=== PATIENT | female | born 1975 | race Caucasian/White ===

== ENCOUNTER 2018-09-02 15:55 | Emergency (ER) | payer OTHER ==
[~2018-09-02] VITALS: Ht 172.7 cm; Wt 90.7 kg
[2018-09-02 15:55] VITALS: BP_SYST 156
[2018-09-02] MEDS ORDERED: KETOROLAC TROMETHAMINE 60 MG/2 ML VIAL IM ONE (16:30)
[2018-09-02 16:36] LABS: CALCIUM 8.9 mg/dL (8.4-11.0); CREATININE 0.82 mg/dL (0.55-1.30); POTASSIUM 3.8 mmol/L (3.5-5.1)
[2018-09-02 16:39] LABS: BASOPHILS # (AUTO) 0.1 K/uL (0.0-0.2); BASOPHILS % (AUTO) 1.4 % (0.0-2.0); EOSINOPHILS # (AUTO) 0.1 K/uL (0.0-0.4); HEMATOCRIT 42.7 % (36-48); HEMOGLOBIN 14.2 g/dL (12.0-16.0); LYMPHOCYTES # (AUTO) 2.2 K/uL (1.0-5.5); LYMPHOCYTES % (AUTO) 34.9 % (20.5-51.5); MEAN CORPUSCULAR HEMOGLOBIN 32 pg (27-31); MEAN CORPUSCULAR HGB CONC 33 % (32-36); MEAN CORPUSCULAR VOLUME 95 fL (79.0-98.0); MONOCYTES # (AUTO) 0.4 K/uL (0.0-1.0); MONOCYTES % (AUTO) 6.3 % (1.7-9.3); NEUTROPHILS # (AUTO) 3.5 K/uL (1.8-7.7); NEUTROPHILS % (AUTO) 56.4 % (40.0-70.0); PLATELET COUNT (AUTO) 300 K/uL (130-430); RED BLOOD CELL COUNT(AUTO) 4.48 MIL/uL (4.2-6.2); RED CELL DISTRIBUTION WIDTH 12.4 % (9.0-15.0); WHITE BLOOD COUNT (AUTO) 6.3 K/uL (4.8-10.8)
[2018-09-02 16:41] LABS: ALBUMIN 3.7 g/dL (3.4-4.8); TOTAL BILIRUBIN 0.4 mg/dL (0.0-1.0)
[2018-09-02 17:40] VITALS: BP_SYST 125
== END 2018-09-02 17:45 | disposition home or self-care (01) ==
LOC: SED 15:55
DX: R07.89 Other chest pain (principal); R03.0 Elevated blood-pressure reading, without diagnosis of hypertension; Z88.1 Allergy status to other antibiotic agents; Z88.2 Allergy status to sulfonamides; Z91.041 Radiographic dye allergy status; Z90.49 Acquired absence of other specified parts of digestive tract; Z90.710 Acquired absence of both cervix and uterus; Z86.718 Personal history of other venous thrombosis and embolism
CPT/HCPCS: 36415; 71045; 80053; 82550; 83880; 84484; 85025; 85379; 93005; 96372; 99285; J1885

== ENCOUNTER 2018-11-13 14:54 | Emergency (ER) | payer OTHER ==
[~2018-11-13] VITALS: Ht 172.7 cm; Wt 90.7 kg
[~2018-11-13 14:54] MED LIST: RIVA15TA PO
[2018-11-13 14:59] VITALS: BP_SYST 148
--- NOTE | 2018-11-13 15:10 | NUR ---
Patient to ER bed 2 to gown for evaluation. Side rails up. Report given to José Miguel RHODES.
[2018-11-13] MEDS ORDERED: NACL 0.9% 1,000 ML IV ONE (15:20)
--- NOTE | 2018-11-13 15:20 | NUR ---
Patient to ER via triage for evaluation of left sided "burning type" CP x 2 days, patient also reports nausea, but no vomiting. EKG was done while patient was in triage-no acute changes. Patient is awake, alert and oriented in no acute distress, HR elevated but vital signs otherwise stable, respirations even and unlabored, skin warm and dry to touch. Patient on cardiac montior which shows sr without ectopy, patient also on BP monitor and pulse oximeter. Awaiting evaluation by ER MD, will continue to observe and assess.
[2018-11-13] MEDS ORDERED: CLOPIDOGREL BISULFATE 75 MG TABLET PO ONE (15:30)
[2018-11-13] MEDS ORDERED: ASPIRIN 81 MG TAB.CHEW PO ONE (15:30)
[2018-11-13] MEDS ORDERED: ONDANSETRON HCL 4 MG/2 ML VIAL IVP ONE (15:30)
--- NOTE | 2018-11-13 15:30 | NUR ---
ER at bedside examining patient.
[2018-11-13] MEDS: NITROGLYCERIN 0.4 MG TAB.SUBL SL ONE ×2 (15:51→15:54)
--- NOTE | 2018-11-13 16:00 | NUR ---
avionics systems technician at bedside for venous doppler of lower extremities. Awaiting lab results and dispo.
[2018-11-13 16:44] LABS: INR 0.9 (0.8-1.2); PROTHROMBIN TIME 9.3 SECS (9.5-12.5)
[2018-11-13 16:49] LABS: CALCIUM 9.3 mg/dL (8.4-11.0); CREATININE 0.97 mg/dL (0.55-1.30); HEMATOCRIT 34.3 % (36-48); HEMOGLOBIN 11.5 g/dL (12.0-16.0); MEAN CORPUSCULAR HEMOGLOBIN 31 pg (27-31); MEAN CORPUSCULAR HGB CONC 34 % (32-36); MEAN CORPUSCULAR VOLUME 91 fL (79.0-98.0); PLATELET COUNT (AUTO) 251 K/uL (130-430); POTASSIUM 4.3 mmol/L (3.5-5.1); RED BLOOD CELL COUNT(AUTO) 3.77 MIL/uL (4.2-6.2); RED CELL DISTRIBUTION WIDTH 12.9 % (9.0-15.0); WHITE BLOOD COUNT (AUTO) 5.5 K/uL (4.8-10.8)
[2018-11-13 16:50] LABS: ALBUMIN 3.6 g/dL (3.4-4.8); BASOPHILS % (AUTO) 0.8 % (0.0-2.0); EOSINOPHILS # (AUTO) 0.1 K/uL (0.0-0.4); EOSINOPHILS % (AUTO) 2.5 % (0.0-4.0); LYMPHOCYTES # (AUTO) 1.1 K/uL (1.0-5.5); LYMPHOCYTES % (AUTO) 20.6 % (20.5-51.5); MONOCYTES # (AUTO) 0.5 K/uL (0.0-1.0); NEUTROPHILS # (AUTO) 3.8 K/uL (1.8-7.7); NEUTROPHILS % (AUTO) 67.1 % (40.0-70.0); TOTAL BILIRUBIN 0.3 mg/dL (0.0-1.0)
--- NOTE | 2018-11-13 17:00 | NUR ---
Patient resting quietly in no acute distress, vital signs stable, respirations even and unlabored, skin warm and dry to touch. Patient remains on salvage engineer which shows sinus rhythm without ectopy. Family remains at bedside. Awaiting dispo.
[2018-11-13 17:12] LABS: CLARITY/URINE CLEAR (CLEAR); COLOR,URINE YELLOW (YELLOW)
[2018-11-13 17:13] LABS: BILIRUBIN,URINE NEGATIVE (NEGATIVE); BLOOD, URINE NEGATIVE (NEGATIVE); GLUCOSE,URINE NEGATIVE (NEGATIVE); KETONES,URINE NEGATIVE (NEGATIVE); LEUKOCYTE ESTERASE ,URINE NEGATIVE (NEGATIVE); NITRITE, URINE NEGATIVE (NEGATIVE); PROTEIN URINE NEGATIVE (NEGATIVE); UROBILINOGEN,URINE 0.2 (0.2-1.0)
--- NOTE | 2018-11-13 17:50 | NUR ---
Patient requesting something for pain, Dr Cruz notified of patient's request.
[2018-11-13] MEDS ORDERED: MORPHINE 4 MG/ML INJ. SYRINGE IVP ONE (18:00)
--- NOTE | 2018-11-13 18:30 | NUR ---
Patient given written and verbal discharge instructions and verbalizes understanding. ER MD discussed with patient the results and treatment provided. Patient in stable condition. ID arm band removed. IV catheter removed intact and dressing applied, no active bleeding. Rx of Robitussin,Tylenol and Zithromax given. Patient educated on pain management and to follow up with PMD. Pain Scale 1/10 tolerable for patient. Opportunity for questions provided and answered. Medication side effect fact sheet provided.
[2018-11-13 18:35] VITALS: BP_SYST 124
== END 2018-11-13 18:35 | disposition home or self-care (01) ==
LOC: SED 14:54
DX: J20.9 Acute bronchitis, unspecified (principal); R07.89 Other chest pain; R03.0 Elevated blood-pressure reading, without diagnosis of hypertension; Z90.710 Acquired absence of both cervix and uterus; Z86.718 Personal history of other venous thrombosis and embolism; Z88.1 Allergy status to other antibiotic agents; Z88.2 Allergy status to sulfonamides; Z91.041 Radiographic dye allergy status
CPT/HCPCS: 36415; 80053; 71045; 81003; 82150; 82550; 83690; 83880; 84484; 85025; 85379; 85610; 85730; 93005; 93970; 96361; 96374; 96375; 99284; J2270; J2405; J7030

== ENCOUNTER 2022-02-26 15:12 | Emergency (ER) | payer OTHER ==
[~2022-02-26] VITALS: Ht 172.7 cm; Wt 90.7 kg
[2022-02-26 15:21] VITALS: BP_SYST 138
--- NOTE | 2022-02-26 15:25 | NUR ---
Patient to ER bed 6 to gown for evaluation. Side rails up. Report given to licensed land surveyor Rhonda.
--- NOTE | 2022-02-26 15:29 | NUR ---
Patient c/o left knee pain states she had a biopsy done 2 days ago on same knee 8/10 pain. c/o LUQ pain x 1 month, dark tarry stools. Hx GI bleeds. Placed onto monitor, vitals stable, patient in no acute distress and or discomfort.
[2022-02-26] MEDS ORDERED: PANTOPRAZOLE SODIUM 40 MG TAB PO ONE ×2 (16:00→16:15)
[2022-02-26] MEDS ORDERED: HYDROcodone/ACETAMIN 5-325 MG TAB (NORCO/ VICODIN) PO ONE (16:15)
--- NOTE | 2022-02-26 16:18 | NUR ---
Welding Inspector at bedside
[2022-02-26 17:27] LABS: BASOPHILS % (AUTO) 0.7 % (0.0-2.0); EOSINOPHILS # (AUTO) 0.1 K/uL (0.0-0.4); EOSINOPHILS % (AUTO) 1.8 % (0.0-4.0); HEMATOCRIT 38.5 % (36-48); HEMOGLOBIN 13.2 g/dL (12.0-16.0); LYMPHOCYTES % (AUTO) 37.6 % (20.5-51.5); MEAN CORPUSCULAR HEMOGLOBIN 31 pg (27-31); MEAN CORPUSCULAR HGB CONC 34 % (32-36); MEAN CORPUSCULAR VOLUME 91 fL (79.0-98.0); MONOCYTES # (AUTO) 0.3 K/uL (0.0-1.0); MONOCYTES % (AUTO) 6.3 % (1.7-9.3); NEUTROPHILS # (AUTO) 2.8 K/uL (1.8-7.7); NEUTROPHILS % (AUTO) 53.6 % (40.0-70.0); PLATELET COUNT (AUTO) 247 K/uL (130-430); RED BLOOD CELL COUNT(AUTO) 4.26 MIL/uL (4.2-6.2); RED CELL DISTRIBUTION WIDTH 13.4 % (9.0-15.0); WHITE BLOOD COUNT (AUTO) 5.3 K/uL (4.8-10.8)
[2022-02-26 17:35] LABS: INR 0.9 (0.8-1.2); PROTHROMBIN TIME 9.9 SECS (9.5-12.5)
--- NOTE | 2022-02-26 19:30 | NUR ---
Patient resting in bed. at bedside. Will continue to monitor.
[2022-02-26] MEDS ORDERED: cloNIDine HCL 0.1 MG TABLET PO ONE (20:00)
--- NOTE | 2022-02-26 20:00 | NUR ---
ER MD AYALAEK AT BEDSIDE TALKING TO PATIENT.
[2022-02-26] MEDS ORDERED: LISI10TA29 PO (20:06)
[2022-02-26] MEDS ORDERED: LISINOPRIL 10 MG TABLET (PRINIVIL) PO ONE (20:15)
[2022-02-26 20:25] VITALS: BP_SYST 148
--- NOTE | 2022-02-26 20:25 | NUR ---
Patient given written and verbal discharge instructions and verbalizes understanding. ER MD WHIPPLE discussed with patient the results and treatment provided. Patient in stable condition. ID arm band removed. Rx of LISINOPRIL given. Patient educated on pain management and to follow up with PMD. Pain Scale 0/10. Opportunity for questions provided and answered. Medication side effect fact sheet provided.
[2022-02-27] MEDS ORDERED: APIX5TAB PO (11:12)
[2022-02-27] MEDS ORDERED: DULO60CA42 PO (11:12)
== END 2022-02-26 20:25 | disposition home or self-care (01) ==
LOC: SED 15:12
DX: R60.0 Localized edema (principal); I10 Essential (primary) hypertension; Z88.1 Allergy status to other antibiotic agents; Z88.2 Allergy status to sulfonamides; Z88.8 Allergy status to other drugs, medicaments and biological substances; Z79.899 Other long term (current) drug therapy
CPT/HCPCS: 36415; 85025; 85379; 85610-TC; 93971; 99284

== ENCOUNTER 2022-02-27 10:00 | Inpatient (IN) | payer OTHER ==
[~2022-02-27] VITALS: Ht 167.6 cm; Wt 90.7 kg
[~2022-02-27 10:00] MED LIST changes: +LISI10TA29 PO
[2022-02-27 10:04] VITALS: BP_SYST 164
--- NOTE | 2022-02-27 10:04 | NUR ---
Patient to ER bed 6 for evaluation. Side rails up. Report given to Janice RHODES.
[2022-02-27] MEDS ORDERED: MORPHINE 4 MG INJ. 4 MG/ML VIAL IVP ONE ×2 (10:10→11:30)
[2022-02-27] MEDS ORDERED: NITROGLYCERIN 1 INCH (GM) OINT. TP ONE (10:10)
--- NOTE | 2022-02-27 10:10 | NUR ---
Dr Velazquez to bedside to examine patient
--- NOTE | 2022-02-27 10:10 | NUR ---
EKG performed at BS by RP. Physician given copy of EKG for review.
[2022-02-27] MEDS ORDERED: ENOXAPARIN SODIUM 80 MG/0.8 ML SYRINGE SUBCUT ONE (10:15)
--- NOTE | 2022-02-27 10:20 | NUR ---
# 20 gauge angiocath placed to left forearm. Use of asceptic technique. Opsite placed over site. Blood return noted. Blood for lab drawn from site. Flushed with 10 cc of normal saline. No evidence of infiltration noted. Patient tolerated well.
[2022-02-27 10:33] LABS: BASOPHILS % (AUTO) 0.7 % (0.0-2.0); EOSINOPHILS # (AUTO) 0.1 K/uL (0.0-0.4); EOSINOPHILS % (AUTO) 1.4 % (0.0-4.0); HEMATOCRIT 41.8 % (36-48); HEMOGLOBIN 14.4 g/dL (12.0-16.0); LYMPHOCYTES # (AUTO) 1.7 K/uL (1.0-5.5); LYMPHOCYTES % (AUTO) 28.5 % (20.5-51.5); MEAN CORPUSCULAR HEMOGLOBIN 31 pg (27-31); MEAN CORPUSCULAR HGB CONC 35 % (32-36); MEAN CORPUSCULAR VOLUME 91 fL (79.0-98.0); MONOCYTES # (AUTO) 0.4 K/uL (0.0-1.0); MONOCYTES % (AUTO) 7.5 % (1.7-9.3); NEUTROPHILS # (AUTO) 3.7 K/uL (1.8-7.7); NEUTROPHILS % (AUTO) 61.9 % (40.0-70.0); PLATELET COUNT (AUTO) 273 K/uL (130-430); RED CELL DISTRIBUTION WIDTH 13.2 % (9.0-15.0); WHITE BLOOD COUNT (AUTO) 5.9 K/uL (4.8-10.8)
--- NOTE | 2022-02-27 10:33 | NUR ---
PORTABLE XRAY AT BEDSIDE.
[2022-02-27 10:53] LABS: ANION GAP 10 (5-15); CALCIUM 9.6 mg/dL (8.4-11.0); CHLORIDE 105 mmol/L (98-107); CREATININE 1.08 mg/dL (0.55-1.30); GLUCOSE 110 mg/dL (70-99); SODIUM SERUM 139 mmol/L (136-145); UREA NITROGEN, BLOOD 11 mg/dL (8-21)
[2022-02-27 10:58] LABS: GFR AFRICAN AMERICAN 70 mL/min (>90)
--- NOTE | 2022-02-27 10:58 | NUR ---
GAVE REPORT TO CARMELO CONNELL WHO WILL ASSUME CARE.
--- NOTE | 2022-02-27 10:59 | NUR ---
RECEIVED REPORT FROM CARLY AND WILL ASSUME CARE
[2022-02-27 11:01] LABS: ALANINE AMINOTRANSFERASE 38 U/L (12-78); ASPARTATE AMINOTRANSFERASE 27 U/L (10-37); TOTAL BILIRUBIN 0.1 mg/dL (0.0-1.0)
[2022-02-27] MEDS ORDERED: APIX5TAB PO (11:12)
[2022-02-27] MEDS ORDERED: DULO60CA42 PO (11:12)
--- NOTE | 2022-02-27 11:18 | NUR ---
PT STATES THAT SHE GOT PRESCRIPTION FOR LISINOPRIL YESTERDAY BUT HAS NOT FILLED IT YET. PT STATES SHE TAKES ELIQUIS AND CYMBALTA AT HOME CURRENTLY. STATES PAIN IS BETTER
--- NOTE | 2022-02-27 11:51 | NUR ---
NOTIFIED ED ADMITTING, POOJA, REGARDING DR. MITCHELL'S REQUEST FOR ADMISSION. PER DR. MITCHELL, PT IS NOT STABLE FOR TRANSFER. WILL CONTACT METER CHANGES RECORDS CLERK REGARDING THIS MATTER. PER FACESHEET: [facility]
--- NOTE | 2022-02-27 12:03 | NUR ---
[facility] [employer], called back regarding pt status. Requested fax of facesheet and clinicals and stated a senior case manager will review and follwo up. FAX: [phone]
--- NOTE | 2022-02-27 12:04 | NUR ---
Admit bed requested Patient will be admitted to care of Dr. Arias. Admitted to tele unit. Diagnosis Chest pain, ACS Inpatient (Yes or No) Y Observation (Yes or No) Y Orientation concerns or request close to nursing station (Yes or No) N Covid Status Pend On vent or bipap N Isolation requirements N Needs a sitter N From Home (Yes or if No enter name of facility) Home Requires Dialysis (Yes or No) N Med Rec Completed (Yes of No) Y
--- NOTE | 2022-02-27 13:16 | NUR ---
[employer] REQUESTED FAX OF MD NOTES, CHEST X-RAY, AND EKG FAX: [phone]
--- NOTE | 2022-02-27 13:33 | NUR ---
Patient will be admitted to care of DR RODRIGUEZ. Admitted to TELE unit. Will go to room 116A. Belongings list completed. Complete and up to date summary report printed. SBAR report to be given at bedside with opportunity for questions.
--- NOTE | 2022-02-27 13:51 | NUR ---
CONSULTATION PAGED/CALLED Reason for Consultation: [] CHEST PAIN Person Who was Notified: [] NIKO Consulting Physician: [] DR SANDY Chain Pegger Specialty: [] CARDIO Ordering Physician: [] DR RODRIGUEZ
--- NOTE | 2022-02-27 13:54 | NUR ---
ADMISSION NOTE Received patient from ER via arina, received report from Hanane RHODES. Patient admitted with diagnosis of chest pain and ACS . Patient oriented to hospital routine, call light, toileting and safety-patient verbalized understanding. All needs met at this time, will continue to monitor.
[2022-02-27] MEDS: NORMAL SALINE 5 ML DISP.SYRIN IVF SCH ×2 (14:00→22:10)
[2022-02-27 14:06] VITALS: BP_SYST 123
[2022-02-27 16:29] LABS: FREE T4 (FREE THYROXINE) 1.1 ng/dl (0.8-1.5); THYROID STIMULATING HORMONE 0.51 uIu/mL (0.36-3.74)
[2022-02-27] MEDS ORDERED: METOPROLOL SUCCINATE 50 MG TAB.SR.24H (TOPROL XL) PO ONE (16:45)
--- NOTE | 2022-02-27 16:50 | NUR ---
MEDICATION REFUSAL Patient refused one time order for metoprolol. Patients BP 126/80.
--- NOTE | 2022-02-27 18:08 | NUR ---
PAIN Patient complaining of chest pain 06/18, Dr Arias paged twice, awaiting reply for orders.
[2022-02-27] MEDS ORDERED: NITROGLYCERIN 0.4 MG TAB.SUBL SL PRN (18:45)
[2022-02-27] MEDS ORDERED: ACETAMINOPHEN 325 MG TABLET PO PRN (19:00)
--- NOTE | 2022-02-27 19:21 | NUR ---
CLOSING NOTE Patient in bed resting with at bedside. Patient complaining of chest pain but is refusing additional nitro tabs because she doesnt like how they make her feel. New orders obtained. All needs met at this time, safety checks made. Endorsed to slot shift supervisor nurse and answered all questions.
[2022-02-27 20:00] VITALS: BP_SYST 126
[2022-02-27] MEDS: APIXABAN 2.5 MG TABLET PO SCH (20:15)
--- NOTE | 2022-02-27 20:57 | NUR ---
OPENING NOTE PATIENT NOTED TO STILL HAVE PAIN OF 8/10 STATED AROUND HER HEAD AND 7/10 AT THE CHEST. SHE WAS GIVEN TYLENOL 650MG AND Dr. RODRIGUEZ WAS CONTACTED AND A ORDER WAS GIVEN FOR MORPHIN 1MG. SHE WAS ALSO GIVEN A ICE PACK FOR HER PAIN. BED WAS PLACED IN THE LOWEST SETTING AND CALL LIGHT WAS WITHIN REACH.
[2022-02-27] MEDS ORDERED: APIXABAN 2.5 MG TABLET PO SCH (21:00)
[2022-02-27 22:05] VITALS: BP_SYST 149
[2022-02-27] MEDS: MORPHINE 2 MG/ML INJ. SYRINGE IVP PRN (22:09)
[2022-02-28 00:53] VITALS: BP_SYST 108
[2022-02-28 03:12] LABS: BASOPHILS # (AUTO) 0.1 K/uL (0.0-0.2); BASOPHILS % (AUTO) 1.2 % (0.0-2.0); EOSINOPHILS # (AUTO) 0.1 K/uL (0.0-0.4); HEMATOCRIT 38.6 % (36-48); LYMPHOCYTES # (AUTO) 2.8 K/uL (1.0-5.5); LYMPHOCYTES % (AUTO) 54.2 % (20.5-51.5); MEAN CORPUSCULAR HEMOGLOBIN 31 pg (27-31); MEAN CORPUSCULAR HGB CONC 34 % (32-36); MEAN CORPUSCULAR VOLUME 91 fL (79.0-98.0); MONOCYTES # (AUTO) 0.3 K/uL (0.0-1.0); NEUTROPHILS # (AUTO) 1.9 K/uL (1.8-7.7); NEUTROPHILS % (AUTO) 36.6 % (40.0-70.0); PLATELET COUNT (AUTO) 236 K/uL (130-430); RED BLOOD CELL COUNT(AUTO) 4.23 MIL/uL (4.2-6.2); WHITE BLOOD COUNT (AUTO) 5.2 K/uL (4.8-10.8)
[2022-02-28 03:27] LABS: CALCIUM 9.2 mg/dL (8.4-11.0); CREATININE 1.03 mg/dL (0.55-1.30); POTASSIUM 4.1 mmol/L (3.5-5.1)
[2022-02-28 03:32] LABS: ALBUMIN 3.5 g/dL (3.4-4.8); TOTAL BILIRUBIN 0.2 mg/dL (0.0-1.0)
[2022-02-28 04:38] LABS: ERYTHROCYTE SEDIMENTATION RATE 9 MM/HR (0-20)
[2022-02-28] MEDS: NORMAL SALINE 5 ML DISP.SYRIN IVF SCH ×2 (05:13→13:51)
[2022-02-28] MEDS: MORPHINE 2 MG/ML INJ. SYRINGE IVP PRN ×3 (06:01→13:54)
--- NOTE | 2022-02-28 07:40 | NUR ---
INITIAL ROUNDS Received pt AAOx4, no s/s resp distress, c/o pain 06/18-pt states the 1 mg Morphine does not help her with the pain-will call MD. No c/ chest pressure. Plan of care for the day reviewed with pt-pt verbalized her understanding. Pain management, skin and safety discussed-teach back done. Call light within reach.
[2022-02-28 08:11] VITALS: BP_SYST 119
[2022-02-28] MEDS ORDERED: DULoxetine HCL 30 MG CAPSULE.DR (CYMBALTA) PO SCH (09:00)
[2022-02-28] MEDS ORDERED: METOPROLOL SUCCINATE 50 MG TAB.SR.24H (TOPROL XL) PO SCH (09:00)
[2022-02-28] MEDS ORDERED: LISINOPRIL 10 MG TABLET (PRINIVIL) PO SCH (09:00)
[2022-02-28] MEDS ORDERED: ENOXAPARIN SODIUM 60 MG/0.6 ML SYRINGE SUBCUT SCH (09:00)
[2022-02-28] MEDS: APIXABAN 2.5 MG TABLET PO SCH (09:33)
[2022-02-28] MEDS ORDERED: NICOTINE 14 MG/24 HR PATCH.TD24 TD ONE (10:00)
[2022-02-28 11:45] VITALS: BP_SYST 112
--- NOTE | 2022-02-28 13:30 | NUR ---
ASSUME CARE: ASSUME CARE. PATIENT RESTING IN BED. C/O CHEST PAIN. WILL GIVE PRN PAIN MEDICATION. NO S/S OF ACUTE DISTRESS NOTED. FALL AND SAFETY MEASURES PROVIDED. CALL LIGHT WITHIN REACH.
[2022-02-28 16:02] VITALS: BP_SYST 106
[2022-02-28] MEDS ORDERED: METO-542 PO (17:05)
[2022-02-28 17:57] VITALS: BP_SYST 106
--- NOTE | 2022-02-28 18:20 | NUR ---
D/C Patient Patient given medication reconciliation form and D/C instructions. Exit Care provided. Patient verbalized understanding. MD discussed with patient the results and treatment provided. Ambulatory with steady gait for discharge to home. Patient in stable condition, ID band removed. IV catheter removed, intact and dressing applied, no active bleeding. E script sent to preferred pharmacy. All belongings sent with patient.
[2022-03-01] MEDS ORDERED: NICOTINE 14 MG/24 HR PATCH.TD24 TD SCH (09:00)
== END 2022-02-28 18:20 | disposition home or self-care (01) | DRG 311 ==
LOC: SED 10:00 → SMU 12:06 → STU 13:33
PROVIDERS: ADMIT Internal Medicine; ATTEND Internal Medicine
DX: I24.9 Acute ischemic heart disease, unspecified (principal); C64.2 Malignant neoplasm of left kidney, except renal pelvis; D68.9 Coagulation defect, unspecified; D68.51 Activated protein C resistance; I10 Essential (primary) hypertension; I16.0 Hypertensive urgency; E78.5 Hyperlipidemia, unspecified; F32.A Depression, unspecified; F41.9 Anxiety disorder, unspecified; Z20.822 Contact with and (suspected) exposure to COVID-19; F17.200 Nicotine dependence, unspecified, uncomplicated; Z88.2 Allergy status to sulfonamides; Z88.8 Allergy status to other drugs, medicaments and biological substances; Z88.6 Allergy status to analgesic agent; Z91.041 Radiographic dye allergy status; Z79.899 Other long term (current) drug therapy; Z79.01 Long term (current) use of anticoagulants; Z86.711 Personal history of pulmonary embolism; Z86.718 Personal history of other venous thrombosis and embolism; Z90.49 Acquired absence of other specified parts of digestive tract; Z90.710 Acquired absence of both cervix and uterus; Z85.528 Personal history of other malignant neoplasm of kidney
CPT/HCPCS: 36415; 71045; 80053; 80061; 83880; 84439; 84443; 84479; 84484; 85025; 85379; 85651-TC; 93005; 93306; 96372; 96374; 96376; 99285; G0378; J1650; J2270

== ENCOUNTER 2022-03-14 11:52 | Emergency (ER) | payer OTHER ==
[~2022-03-14 11:52] MED LIST changes: +APIX5TAB PO; +DULO60CA42 PO; +METO-542 PO; -RIVA15TA PO
[2022-03-14 11:57] VITALS: BP_SYST 147
[2022-03-14] MEDS ORDERED: ONDANSETRON HCL 4 MG/2 ML VIAL IVP ONE (12:15)
[2022-03-14] MEDS ORDERED: MORPHINE 4 MG INJ. 4 MG/ML VIAL IVP ONE (12:15)
[2022-03-14 12:25] LABS: BASOPHILS # (AUTO) 0.1 K/uL (0.0-0.2); BASOPHILS % (AUTO) 0.9 % (0.0-2.0); EOSINOPHILS % (AUTO) 0.6 % (0.0-4.0); HEMATOCRIT 40.5 % (36-48); HEMOGLOBIN 14.1 g/dL (12.0-16.0); LYMPHOCYTES # (AUTO) 2.1 K/uL (1.0-5.5); MEAN CORPUSCULAR HEMOGLOBIN 32 pg (27-31); MEAN CORPUSCULAR HGB CONC 35 % (32-36); MEAN CORPUSCULAR VOLUME 91 fL (79.0-98.0); MONOCYTES # (AUTO) 0.4 K/uL (0.0-1.0); MONOCYTES % (AUTO) 6.4 % (1.7-9.3); NEUTROPHILS # (AUTO) 3.4 K/uL (1.8-7.7); NEUTROPHILS % (AUTO) 57.1 % (40.0-70.0); PLATELET COUNT (AUTO) 333 K/uL (130-430); RED BLOOD CELL COUNT(AUTO) 4.46 MIL/uL (4.2-6.2); RED CELL DISTRIBUTION WIDTH 13.3 % (9.0-15.0)
[2022-03-14 12:43] LABS: ANION GAP 10 (5-15); CALCIUM 8.7 mg/dL (8.4-11.0); CHLORIDE 104 mmol/L (98-107); CREATININE 1.13 mg/dL (0.55-1.30); GLUCOSE 114 mg/dL (70-99); POTASSIUM 3.6 mmol/L (3.5-5.1); SODIUM SERUM 139 mmol/L (136-145); UREA NITROGEN, BLOOD 12 mg/dL (8-21)
[2022-03-14 12:52] LABS: ALANINE AMINOTRANSFERASE 43 U/L (12-78); ALBUMIN 4.1 g/dL (3.4-4.8); ASPARTATE AMINOTRANSFERASE 25 U/L (10-37); TOTAL BILIRUBIN 0.2 mg/dL (0.0-1.0)
[2022-03-14 12:57] LABS: GFR AFRICAN AMERICAN 66 mL/min (>90)
[2022-03-14 13:13] LABS: BILIRUBIN,URINE NEGATIVE (NEGATIVE); BLOOD, URINE NEGATIVE (NEGATIVE); COLOR,URINE YELLOW (YELLOW); GLUCOSE,URINE NEGATIVE (NEGATIVE); KETONES,URINE NEGATIVE (NEGATIVE); LEUKOCYTE ESTERASE ,URINE NEGATIVE (NEGATIVE); NITRITE, URINE NEGATIVE (NEGATIVE); PH,URINE 6.5 (5.0-8.0); PROTEIN URINE NEGATIVE (NEGATIVE); UROBILINOGEN,URINE 0.2 (0.2-1.0)
[2022-03-14 13:19] LABS: CLARITY/URINE CLEAR (CLEAR)
[2022-03-14] MEDS ORDERED: MORPHINE 2 MG/ML INJ. SYRINGE IVP ONE (14:45)
[2022-03-14] MEDS ORDERED: ACET-2634 PO (14:59)
[2022-03-14] MEDS ORDERED: LIDO1ADH22 TP (14:59)
[2022-03-14 15:37] VITALS: BP_SYST 137
== END 2022-03-14 15:37 | disposition home or self-care (01) ==
LOC: SED 11:52
DX: R07.89 Other chest pain (principal); F41.9 Anxiety disorder, unspecified; I10 Essential (primary) hypertension; Z79.899 Other long term (current) drug therapy; Z88.2 Allergy status to sulfonamides
CPT/HCPCS: 36415; 71046; 80053; 81003; 84484; 85025; 93005; 96374; 96375; 96376; 99285; J2270 ×2; J2405

== ENCOUNTER 2022-05-10 07:18 | Inpatient (IN) | payer OTHER ==
[~2022-05-10] VITALS: Ht 172.7 cm; Wt 90.7 kg
[~2022-05-10 07:18] MED LIST changes: +ACET-2634 PO; +LIDO1ADH22 TP
[2022-05-10 07:45] VITALS: BP_SYST 160
--- NOTE | 2022-05-10 07:45 | NUR ---
Patient to ER bed 7 to gown for evaluation. Side rails up. Report given to Blas RHODES.
[2022-05-10] MEDS ORDERED: PANTOPRAZOLE SODIUM 40 MG in NS 50 ML IV SCH (08:15)
[2022-05-10] MEDS ORDERED: PANTOPRAZOLE SODIUM 80 MG in NS 100 ML IVP ONE (08:15)
[2022-05-10] MEDS ORDERED: MAG HYDROX/AL HYDROX/SIMETH 30 ML, LIDOCAINE VISCOUS 2% 15ML (PO) 15 ML, DICYCLOMINE HC... PO ONE ×3 (08:15)
[2022-05-10] MEDS ORDERED: ONDANSETRON HCL 4 MG/2 ML VIAL IVP ONE ×2 (08:15)
--- NOTE | 2022-05-10 08:15 | NUR ---
In ER bed 7. C/O Abd pain and R ear and face pain. MD has seen Orders to implemented.
[2022-05-10] MEDS ORDERED: PANTOPRAZOLE SODIUM 40 MG/VIAL (PROTONIX) ONE (08:34)
[2022-05-10 08:44] LABS: BILIRUBIN,URINE NEGATIVE (NEGATIVE); BLOOD, URINE NEGATIVE (NEGATIVE); CLARITY/URINE CLEAR (CLEAR); COLOR,URINE YELLOW (YELLOW); GLUCOSE,URINE NEGATIVE (NEGATIVE); KETONES,URINE NEGATIVE (NEGATIVE); LEUKOCYTE ESTERASE ,URINE NEGATIVE (NEGATIVE); NITRITE, URINE NEGATIVE (NEGATIVE); PROTEIN URINE NEGATIVE (NEGATIVE); UROBILINOGEN,URINE 0.2 (0.2-1.0)
[2022-05-10 08:46] LABS: BASOPHILS % (AUTO) 0.7 % (0.0-2.0); EOSINOPHILS # (AUTO) 0.1 K/uL (0.0-0.4); EOSINOPHILS % (AUTO) 0.9 % (0.0-4.0); HEMATOCRIT 39.1 % (36-48); HEMOGLOBIN 13.5 g/dL (12.0-16.0); LYMPHOCYTES # (AUTO) 1.9 K/uL (1.0-5.5); LYMPHOCYTES % (AUTO) 31.6 % (20.5-51.5); MEAN CORPUSCULAR HEMOGLOBIN 32 pg (27-31); MEAN CORPUSCULAR HGB CONC 35 % (32-36); MEAN CORPUSCULAR VOLUME 91 fL (79.0-98.0); MONOCYTES # (AUTO) 0.3 K/uL (0.0-1.0); MONOCYTES % (AUTO) 4.7 % (1.7-9.3); NEUTROPHILS # (AUTO) 3.6 K/uL (1.8-7.7); NEUTROPHILS % (AUTO) 62.1 % (40.0-70.0); PLATELET COUNT (AUTO) 267 K/uL (130-430); RED CELL DISTRIBUTION WIDTH 13.4 % (9.0-15.0); WHITE BLOOD COUNT (AUTO) 5.9 K/uL (4.8-10.8)
[2022-05-10 08:56] LABS: CALCIUM 8.3 mg/dL (8.4-11.0); POTASSIUM 3.8 mmol/L (3.5-5.1)
[2022-05-10 09:01] LABS: PROTHROMBIN TIME 10.2 SECS (9.5-12.5)
[2022-05-10 09:02] LABS: ALBUMIN 3.7 g/dL (3.4-4.8); TOTAL BILIRUBIN 0.3 mg/dL (0.0-1.0)
[2022-05-10] MEDS ORDERED: MORPHINE 4 MG INJ. 4 MG/ML VIAL IVP ONE ×2 (09:15)
[2022-05-10 09:54] LABS: ERYTHROCYTE SEDIMENTATION RATE 12 MM/HR (0-20)
[2022-05-10 10:37] LABS: HEMATOCRIT 36.9 % (36-48); HEMOGLOBIN 12.7 g/dL (12.0-16.0); MEAN CORPUSCULAR HEMOGLOBIN 32 pg (27-31); MEAN CORPUSCULAR HGB CONC 35 % (32-36); MEAN CORPUSCULAR VOLUME 91 fL (79.0-98.0); PLATELET COUNT (AUTO) 232 K/uL (130-430); RED BLOOD CELL COUNT(AUTO) 4.04 MIL/uL (4.2-6.2); RED CELL DISTRIBUTION WIDTH 13.2 % (9.0-15.0); WHITE BLOOD COUNT (AUTO) 5.3 K/uL (4.8-10.8)
[2022-05-10] MEDS ORDERED: AMPICILLIN SODIUM/SULBACTAM NA 3 GM VIAL IM ONE (10:45)
[2022-05-10] MEDS ORDERED: ACETAMINOPHEN 500 MG TABLET PO PRN (10:45)
[2022-05-10] MEDS ORDERED: DOCUSATE SODIUM 100 MG/10 ML UDC PO PRN (10:45)
[2022-05-10] MEDS ORDERED: guaiFENesin/DEXTROMETHORPHAN 10 ML UDC PO PRN (10:45)
[2022-05-10 11:16] LABS: FREE T4 (FREE THYROXINE) 0.9 ng/dl (0.8-1.5); PHOSPHORUS 3.4 mg/dL (2.7-4.5); THYROID STIMULATING HORMONE 0.7 uIu/mL (0.36-3.74)
[2022-05-10 13:58] LABS: BILIRUBIN,URINE NEGATIVE (NEGATIVE); BLOOD, URINE NEGATIVE (NEGATIVE); CLARITY/URINE CLEAR (CLEAR); COLOR,URINE YELLOW (YELLOW); GLUCOSE,URINE NEGATIVE (NEGATIVE); KETONES,URINE NEGATIVE (NEGATIVE); LEUKOCYTE ESTERASE ,URINE NEGATIVE (NEGATIVE); NITRITE, URINE NEGATIVE (NEGATIVE); PH,URINE 6.5 (5.0-8.0); PROTEIN URINE NEGATIVE (NEGATIVE); UROBILINOGEN,URINE 0.2 (0.2-1.0)
[2022-05-10] MEDS ORDERED: PANTOPRAZOLE SODIUM 40 MG TAB PO ONE (14:30)
[2022-05-10 14:40] VITALS: BP_SYST 133
--- NOTE | 2022-05-10 14:40 | NUR ---
ADMISSION NOTE Received patient from ER via gurney. Patient admitted with diagnosis of GI Bleeding. Patient is awake, alert, oriented X 4. Patient oriented to hospital room, call light, toileting, pain management and safety-teach back done. Patient informed that their room number is 103B. Personal belongings checked and Belongings List documented. Call light within reach. Will continue to monitor.
--- NOTE | 2022-05-10 14:50 | NUR ---
ADMISSION NOTE Received patient from ER via wheelchair. Patient admitted with diagnosis of GI bleed. Patient is awake, alert, oriented X 4. Patient oriented to hospital room, call light, toileting, pain management and safety-teach back done. Patient informed their room number is 103 B. Personal belongings checked and Belongings List documented. Call light within reach.
--- NOTE | 2022-05-10 14:51 | NUR ---
Stable. VSS. Afebrile. Minimal pain. Has been admitted. Report to floor. Ambulated to . Placed in bed. Nurse aware.
[2022-05-10] MEDS: D5NS 1,000 ML IV SCH ×2 (14:54→18:10)
--- NOTE | 2022-05-10 15:47 | NUR ---
CONSULTATION PAGED/CALLED Reason for Consultation: [] GI BLEED Person Who was Notified: [] SERA Consulting Physician: [] DR GOLD Brim Welt Sewing Machine Operator Specialty: [] GI Ordering Physician: [] DR BLAKE
[2022-05-10 16:40] VITALS: BP_SYST 129
[2022-05-10] MEDS: MORPHINE 2 MG/ML INJ. SYRINGE IVP PRN (18:13)
--- NOTE | 2022-05-10 18:53 | NUR ---
CLOSING NOTES: Patient alert, oriented, verbally responsive, able to make her needs known. IV patent and infusing well, patient with BRP, safety precaution observed, call light within reach, bed height lowered for safety, all needs met during shift. Will continue to monitor until shift lab technician nurse.
[2022-05-10 20:49] VITALS: BP_SYST 121
[2022-05-10] MEDS: HYDROcodone/ACETAMIN 7.5-325 MG TAB PO PRN (21:00)
[2022-05-10] MEDS: ZOLPIDEM TARTRATE 5 MG TABLET PO PRN (22:44)
[2022-05-10 23:38] VITALS: BP_SYST 120
[2022-05-11] MEDS: MORPHINE 2 MG/ML INJ. SYRINGE IVP PRN ×4 (00:53→23:26)
[2022-05-11] MEDS: D5NS 1,000 ML IV SCH ×3 (01:38→16:25)
[2022-05-11 07:05] LABS: BASOPHILS % (AUTO) 0.9 % (0.0-2.0); EOSINOPHILS # (AUTO) 0.1 K/uL (0.0-0.4); EOSINOPHILS % (AUTO) 2.2 % (0.0-4.0); HEMOGLOBIN 12.7 g/dL (12.0-16.0); LYMPHOCYTES # (AUTO) 1.9 K/uL (1.0-5.5); LYMPHOCYTES % (AUTO) 47.6 % (20.5-51.5); MEAN CORPUSCULAR HEMOGLOBIN 31 pg (27-31); MEAN CORPUSCULAR HGB CONC 34 % (32-36); MEAN CORPUSCULAR VOLUME 91 fL (79.0-98.0); MONOCYTES # (AUTO) 0.3 K/uL (0.0-1.0); MONOCYTES % (AUTO) 8.1 % (1.7-9.3); NEUTROPHILS # (AUTO) 1.7 K/uL (1.8-7.7); NEUTROPHILS % (AUTO) 41.2 % (40.0-70.0); PLATELET COUNT (AUTO) 226 K/uL (130-430); RED BLOOD CELL COUNT(AUTO) 4.06 MIL/uL (4.2-6.2); RED CELL DISTRIBUTION WIDTH 13.2 % (9.0-15.0); WHITE BLOOD COUNT (AUTO) 4.1 K/uL (4.8-10.8)
--- NOTE | 2022-05-11 07:45 | NUR ---
OPENING NOTES: Received patient alert, oriented, able to make needs known, BRP, IV in place, intact and infusing well, safety precautions observed, bed in lowered position, call light within reach. Will continue to monitor.
[2022-05-11 08:00] VITALS: BP_SYST 132
[2022-05-11 08:05] LABS: CALCIUM 7.7 mg/dL (8.4-11.0); CREATININE 0.94 mg/dL (0.55-1.30)
[2022-05-11 08:07] VITALS: BP_SYST 132
[2022-05-11] MEDS: ONDANSETRON HCL 4 MG/2 ML VIAL IVP PRN (08:35)
--- NOTE | 2022-05-11 08:57 | NUR ---
NEW MD ORDER; Spoke with Dr. Valenzuela at patient bedside, increase Protonix 40 mg to BID, and change NPO diet to Clear Liquid Diet start at breakfast
[2022-05-11] MEDS ORDERED: PANTOPRAZOLE SODIUM 40 MG TAB PO SCH (09:00)
[2022-05-11] MEDS ORDERED: POTASSIUM CHLORIDE 20 MEQ TAB.PRT.SR PO PRN (09:00)
[2022-05-11 12:00] VITALS: BP_SYST 128
[2022-05-11 16:00] VITALS: BP_SYST 120
[2022-05-11] MEDS: DULoxetine HCL 30 MG CAPSULE.DR (CYMBALTA) PO SCH (17:30)
[2022-05-11] MEDS ORDERED: AMLO5TAB92 PO (18:05)
[2022-05-11] MEDS: HYDROcodone/ACETAMIN 7.5-325 MG TAB PO PRN (18:14)
[2022-05-11] MEDS ORDERED: HYDR-500 PO (18:24)
[2022-05-11] MEDS: amLODIPine BESYLATE 5 MG TABLET PO SCH (18:45)
--- NOTE | 2022-05-11 18:45 | NUR ---
CLOSING NOTES: Patient alert, oriented, able to make needs known, BRP, ambulates independently, IV in place, safety precaution observed, call light within reach, all needs met throughout shift, NPO after midnight due to ECG tomorrow. Will continue to monitor until pellet post inspector nurse.
--- NOTE | 2022-05-11 20:00 | NUR ---
RECEIVED PATIENT ALERT, ORIENTED, ABLE TO MAKE NEEDS KNOWN, NO S/S OF DISTRESS OR DISCOMFORT NOTED, BREATHING EVEN AND UNLABORED, BRP, IV IN PLACE, INTACT AND INFUSING WELL, SAFETY PRECAUTIONS OBSERVED, BED IN LOWEST POSITION, CALL LIGHT WITHIN REACH, WILL CONTINUE TO MONITOR.
[2022-05-11 20:07] VITALS: BP_SYST 124
[2022-05-11] MEDS ORDERED: NICOTINE 7 MG/24 HR PATCH.TD24 TD SCH (21:00)
[2022-05-11] MEDS: PANTOPRAZOLE SODIUM 40 MG TAB PO SCH (22:03)
[2022-05-12] MEDS: D5NS 1,000 ML IV SCH ×2 (00:08→06:23)
[2022-05-12] MEDS: ZOLPIDEM TARTRATE 5 MG TABLET PO PRN (00:25)
[2022-05-12 00:29] VITALS: BP_SYST 127
[2022-05-12] MEDS: MORPHINE 2 MG/ML INJ. SYRINGE IVP PRN ×2 (06:18→11:13)
[2022-05-12] MEDS: ONDANSETRON HCL 4 MG/2 ML VIAL IVP PRN ×2 (06:18→09:46)
--- NOTE | 2022-05-12 06:41 | NUR ---
PT RESTING COMFORTABLY IN BED, NO DISTRESS OR DISCOMFORT NOTED, REPOSITIONS SELF PER COMFORT, ALL FALL PROTOCOLS IMPLEMENTED, WILL CONTINUE TO MONITOR.
[2022-05-12 07:13] LABS: BASOPHILS % (AUTO) 0.6 % (0.0-2.0); EOSINOPHILS # (AUTO) 0.1 K/uL (0.0-0.4); EOSINOPHILS % (AUTO) 2.4 % (0.0-4.0); HEMATOCRIT 36.5 % (36-48); HEMOGLOBIN 12.6 g/dL (12.0-16.0); LYMPHOCYTES # (AUTO) 1.8 K/uL (1.0-5.5); MEAN CORPUSCULAR HEMOGLOBIN 31 pg (27-31); MEAN CORPUSCULAR HGB CONC 35 % (32-36); MEAN CORPUSCULAR VOLUME 91 fL (79.0-98.0); MONOCYTES # (AUTO) 0.3 K/uL (0.0-1.0); MONOCYTES % (AUTO) 7.6 % (1.7-9.3); NEUTROPHILS # (AUTO) 1.4 K/uL (1.8-7.7); NEUTROPHILS % (AUTO) 39.4 % (40.0-70.0); PLATELET COUNT (AUTO) 224 K/uL (130-430); RED BLOOD CELL COUNT(AUTO) 4.02 MIL/uL (4.2-6.2); RED CELL DISTRIBUTION WIDTH 12.9 % (9.0-15.0); WHITE BLOOD COUNT (AUTO) 3.6 K/uL (4.8-10.8)
--- NOTE | 2022-05-12 07:14 | NUR ---
SHIFT CHANGE REPORT REPORT GIVEN TO ISA RHODES FOR CONTINUITY OF CARE, ALL QUESTIONS WERE ANSWERED AND RN VERBALIZED UNDERSTANDING.
[2022-05-12] MEDS ORDERED: fentaNYL CITRATE/PF 100 MCG/2 ML AMP ONE (07:22)
[2022-05-12] MEDS ORDERED: BENZOCAINE 20% 0.5mL UD SPRAY MM ONE (07:23)
[2022-05-12 07:35] LABS: PROTHROMBIN TIME 10.3 SECS (9.5-12.5)
[2022-05-12] MEDS ORDERED: DIPHENHYDRAMINE INJ 50 MG/ML VIAL ONE (07:54)
[2022-05-12 07:58] LABS: CALCIUM 7.8 mg/dL (8.4-11.0); CREATININE 0.86 mg/dL (0.55-1.30); POTASSIUM 3.6 mmol/L (3.5-5.1)
[2022-05-12] MEDS: MEPERIDINE 100 MG INJ. 100 MG/ML VIAL ONE ×3 (08:14→08:23)
[2022-05-12] MEDS: MIDAZOLAM HCL 5 MG/5 ML VIAL ONE ×3 (08:14→08:23)
--- NOTE | 2022-05-12 08:30 | NUR ---
BROUGHT TO GI FOR EGD: BROUGHT TO GI FOR EGD. PATIENT IN STABLE CONDITION.
[2022-05-12] MEDS: amLODIPine BESYLATE 5 MG TABLET PO SCH (09:44)
[2022-05-12] MEDS: PANTOPRAZOLE SODIUM 40 MG TAB PO SCH (09:44)
[2022-05-12] MEDS: DULoxetine HCL 30 MG CAPSULE.DR (CYMBALTA) PO SCH (09:45)
[2022-05-12 12:46] VITALS: BP_SYST 121
--- NOTE | 2022-05-12 13:05 | NUR ---
D/C Patient Patient given medication reconciliation form and D/C instructions. Exit Care provided. Patient verbalized understanding. MD discussed with patient the results and treatment provided. Ambulatory with steady gait for discharge to home. Patient in stable condition, ID band removed. IV catheter removed, intact and dressing applied, no active bleeding.Patient educated on pain management. All belongings sent with patient.
--- NOTE | 2022-05-12 15:02 | NUR ---
OPENING NOTES: PATIENT RESTING IN BED. NPO. NO S/S OF ACUTE DISTRESS NOTED. FALL AND SAFETY MEASURES PROVIDED. CALL LIGHT WITHIN REACH.
== END 2022-05-12 13:05 | disposition home or self-care (01) | DRG 378 ==
LOC: SED 07:18 → SMU 10:43
PROVIDERS: ADMIT Family Medicine; ATTEND Family Medicine
PROC: 0DB78ZX Excision of Stomach, Pylorus, Via Natural or Artificial Opening Endoscopic, Diagnostic (ICD-10-PCS; principal; 2022-05-12 08:00)
DX: K29.71 Gastritis, unspecified, with bleeding (principal); D68.51 Activated protein C resistance; J32.9 Chronic sinusitis, unspecified; Z20.822 Contact with and (suspected) exposure to COVID-19; I10 Essential (primary) hypertension; Z85.528 Personal history of other malignant neoplasm of kidney; Z79.899 Other long term (current) drug therapy; Z88.5 Allergy status to narcotic agent; Z88.2 Allergy status to sulfonamides; Z88.8 Allergy status to other drugs, medicaments and biological substances; Z91.041 Radiographic dye allergy status; Z86.718 Personal history of other venous thrombosis and embolism; Z79.01 Long term (current) use of anticoagulants
CPT/HCPCS: 36415; 43239; 70486-TC; 71045; 76376; 80048; 80053; 80061; 81003; 82150; 83036; 83051; 83605; 83690; 83735; 83880; 84100; 84439; 84443; 84703; 85014; 85025; 85048; 85049-TC; 85610-TC; 85651-TC; 85730-TC; 86886; 86900; 86901; 87040; 87081; 88305; 88312; 88313; 93005; 96374; 96375; 99285; C9113; J1200; J2001; J2175; J2250; J2270; J2405; J3010

== ENCOUNTER 2022-05-24 11:13 | Emergency (ER) | payer OTHER ==
[~2022-05-24] VITALS: Ht 172.7 cm; Wt 90.7 kg
[~2022-05-24 11:13] MED LIST changes: +AMLO5TAB92 PO; -APIX5TAB PO; +HYDR-500 PO
[2022-05-24 11:43] VITALS: BP_SYST 132
== END 2022-05-24 12:22 | disposition left against medical advice (07) ==
LOC: SED 11:13
DX: R20.0 Anesthesia of skin (principal); Z53.21 Procedure and treatment not carried out due to patient leaving prior to being seen by health care provider

== ENCOUNTER 2022-07-10 12:34 | Emergency (ER) | payer OTHER ==
[~2022-07-10] VITALS: Ht 172.7 cm; Wt 90.7 kg
[2022-07-10 12:38] VITALS: BP_SYST 147
[2022-07-10] MEDS ORDERED: MORPHINE 4 MG INJ. 4 MG/ML VIAL IM ONE (13:30)
[2022-07-10 13:37] LABS: BASOPHILS % (AUTO) 0.6 % (0.0-2.0); EOSINOPHILS # (AUTO) 0.1 K/uL (0.0-0.4); EOSINOPHILS % (AUTO) 1.2 % (0.0-4.0); HEMATOCRIT 37.1 % (36-48); HEMOGLOBIN 12.9 g/dL (12.0-16.0); LYMPHOCYTES # (AUTO) 2.2 K/uL (1.0-5.5); LYMPHOCYTES % (AUTO) 39.4 % (20.5-51.5); MEAN CORPUSCULAR HEMOGLOBIN 32 pg (27-31); MEAN CORPUSCULAR HGB CONC 35 % (32-36); MEAN CORPUSCULAR VOLUME 91 fL (79.0-98.0); MONOCYTES # (AUTO) 0.4 K/uL (0.0-1.0); MONOCYTES % (AUTO) 7.3 % (1.7-9.3); NEUTROPHILS # (AUTO) 2.9 K/uL (1.8-7.7); NEUTROPHILS % (AUTO) 51.5 % (40.0-70.0); PLATELET COUNT (AUTO) 258 K/uL (130-430); RED BLOOD CELL COUNT(AUTO) 4.08 MIL/uL (4.2-6.2); RED CELL DISTRIBUTION WIDTH 13.3 % (9.0-15.0); WHITE BLOOD COUNT (AUTO) 5.6 K/uL (4.8-10.8)
[2022-07-10 14:03] LABS: CREATININE 0.99 mg/dL (0.55-1.30); POTASSIUM 3.9 mmol/L (3.5-5.1); PROTHROMBIN TIME 9.9 SECS (9.5-12.5)
[2022-07-10 14:16] LABS: ALBUMIN 3.5 g/dL (3.4-4.8); TOTAL BILIRUBIN 0.2 mg/dL (0.0-1.0)
[2022-07-10 16:00] VITALS: BP_SYST 118
== END 2022-07-10 16:00 | disposition home or self-care (01) ==
LOC: SED 12:34
DX: M54.2 Cervicalgia (principal); D09.8 Carcinoma in situ of other specified sites; I10 Essential (primary) hypertension; Z88.1 Allergy status to other antibiotic agents; Z88.2 Allergy status to sulfonamides; Z88.6 Allergy status to analgesic agent; Z91.041 Radiographic dye allergy status; Z79.899 Other long term (current) drug therapy
CPT/HCPCS: 99284; 96374; 93971; 80053; 85025; 85610; 85730; 36415; J2270

== ENCOUNTER 2023-02-15 08:54 | Emergency (ER) | payer OTHER ==
[~2023-02-15] VITALS: Ht 172.7 cm; Wt 90.7 kg
--- NOTE | 2023-02-15 09:00 | NUR ---
Placed in room 02 . Placed on key operator, blood pressure machine and pulse oximeter. To gown for exam. Side rails up. Report given to Wesly RHODES .
[2023-02-15 09:03] VITALS: BP_SYST 156
--- NOTE | 2023-02-15 09:07 | NUR ---
md lewis at bedside to evaluate patient
--- NOTE | 2023-02-15 09:22 | NUR ---
A/OX4 VSS, AT BEDSIDE,
[2023-02-15] MEDS ORDERED: HYDROcodone/ACETAMIN 10-325 MG TAB PO ONE (09:30)
--- NOTE | 2023-02-15 09:37 | NUR ---
LAB AT BEDSIDE AT THIS TIME
[2023-02-15 10:06] LABS: BASOPHILS % (AUTO) 0.7 % (0.0-2.0); EOSINOPHILS % (AUTO) 0.4 % (0.0-4.0); HEMOGLOBIN 13.3 g/dL (12.0-16.0); LYMPHOCYTES # (AUTO) 1.5 K/uL (1.0-5.5); LYMPHOCYTES % (AUTO) 28.9 % (20.5-51.5); MEAN CORPUSCULAR HEMOGLOBIN 32 pg (27-31); MEAN CORPUSCULAR HGB CONC 34 % (32-36); MEAN CORPUSCULAR VOLUME 93 fL (79.0-98.0); MONOCYTES # (AUTO) 0.3 K/uL (0.0-1.0); MONOCYTES % (AUTO) 5.2 % (1.7-9.3); NEUTROPHILS # (AUTO) 3.3 K/uL (1.8-7.7); NEUTROPHILS % (AUTO) 64.8 % (40.0-70.0); PLATELET COUNT (AUTO) 269 K/uL (130-430); RED CELL DISTRIBUTION WIDTH 13.6 % (9.0-15.0); WHITE BLOOD COUNT (AUTO) 5.1 K/uL (4.8-10.8)
[2023-02-15 10:14] LABS: ANION GAP 9 (5-15); CALCIUM 9.1 mg/dL (8.4-11.0); CHLORIDE 104 mmol/L (98-107); CREATININE 1.03 mg/dL (0.55-1.30); GFR AFRICAN AMERICAN 73 mL/min (>90); GLUCOSE 119 mg/dL (70-99); UREA NITROGEN, BLOOD 10 mg/dL (8-21)
[2023-02-15 10:19] LABS: PROTHROMBIN TIME 10.3 SECS (9.5-12.5)
[2023-02-15] MEDS ORDERED: iohexoL 350 mgI/mL, 100 ML INFUS..BTL IV ONE (10:27)
[2023-02-15 10:28] LABS: ALANINE AMINOTRANSFERASE 30 U/L (12-78); ALBUMIN 3.8 g/dL (3.4-4.8); ASPARTATE AMINOTRANSFERASE 15 U/L (10-37); THYROID STIMULATING HORMONE 0.71 uIu/mL (0.34-4.82); TOTAL BILIRUBIN 0.3 mg/dL (0.0-1.0)
[2023-02-15 11:26] LABS: BARBITURATE, URINE NEGATIVE (NEG <=200)
[2023-02-15 11:27] LABS: BENZODIAZEPINE, URINE NEGATIVE (NEG <=150); CANNABINOID, URINE POSITIVE (NEG <=50); COCAINE, URINE NEGATIVE (NEG <=150); METHAMPHETAMINES SCREEN,URINE NEGATIVE (NEG <=500); OPIATE, URINE NEGATIVE (NEG <=100); PHENCYCLIDINE SCREEN,URINE NEGATIVE (NEG <=25); UR TRICYCLIC ANTIDEPRESSANTS NEGATIVE (NEG <=300); URINE AMPHETAMINE NEGATIVE (NEG <=500); URINE METHADONE NEGATIVE (NEG <=200); URINE OXYCODONE SCREEN NEGATIVE (NEG <=100); URINE PROPOXYPHENE SCREEN NEGATIVE (NEG <=300)
[2023-02-15] MEDS ORDERED: ONDANSETRON 4 MG ODT TAB PO ONE (12:00)
[2023-02-15] MEDS ORDERED: MORPHINE 2 MG/ML INJ. SYRINGE IVP ONE (12:15)
[2023-02-15 12:16] VITALS: BP_SYST 177
--- NOTE | 2023-02-15 13:14 | NUR ---
JOSELYN STATED TO CALL US AT THIS TIME CAUSE THEY ARE NOT ANSWERING
--- NOTE | 2023-02-15 13:19 | NUR ---
HAD SURGICAL AIDE TO OVERHEAD PAGE US
--- NOTE | 2023-02-15 13:19 | NUR ---
CALLED HOUSESUPERVIOR FOR US
--- NOTE | 2023-02-15 13:57 | NUR ---
US AT BEDSIDE
[2023-02-15] MEDS ORDERED: IBUP-1969 PO (14:29)
[2023-02-15] MEDS ORDERED: TRAM50TA2 PO (14:29)
--- NOTE | 2023-02-15 14:52 | NUR ---
Patient given written and verbal discharge instructions and verbalizes understanding. ER MD discussed with patient the results and treatment provided. Patient in stable condition. ID arm band removed. IV catheter removed intact and dressing applied, no active bleeding. Rx of given. Patient educated on pain management and to follow up with PMD. Pain Scale . Opportunity for questions provided and answered. Medication side effect fact sheet provided.
== END 2023-02-15 14:52 | disposition home or self-care (01) ==
LOC: SED 08:54
DX: R07.89 Other chest pain (principal); R06.02 Shortness of breath; I10 Essential (primary) hypertension; Z88.1 Allergy status to other antibiotic agents; Z88.2 Allergy status to sulfonamides; Z88.6 Allergy status to analgesic agent; Z79.899 Other long term (current) drug therapy
CPT/HCPCS: 99285; 96374; 71275; 93971; 80307; 80053; 83880; 84439; 84443; 85025; 85610; 85730; 84484; 36415; 93005; 76376; Q0162; Q9967; J2270